=== PATIENT | male | born 1975 | race Caucasian/White ===

== ENCOUNTER 2016-11-10 11:50 | Emergency (ER) | payer OTHER, MEDICARE ==
[~2016-11-10] VITALS: Ht 172.7 cm; Wt 68.0 kg
[2016-11-10 12:35] VITALS: BP 123/78; PULSE 61; RESP 16; TEMP 98; O2SAT 99
[2016-11-10 12:40] VITALS: RESP 16; O2SAT 98
[2016-11-10 13:06] VITALS: BP 140/89; PULSE 54; RESP 16; O2SAT 100
[2016-11-10 13:12] LABS: AUTOMATED NEUTROPHIL # 4.3 TH/MM3 (1.8-7.7); BASOPHIL % 0.5 % (0.0-2.0); EOSINOPHIL # 0.1 TH/MM3 (0-0.4); EOSINOPHIL % 1.3 % (0.0-4.0); HEMATOCRIT 46.5 % (39.0-51.0); HEMO FLAGS DIFF FINAL; LYMPHOCYTE # 2.4 TH/MM3 (1.0-4.8); MEAN CELL VOLUME 88.7 FL (80.0-100.0); MEAN CORPUSCULAR HEMOGLOBIN 30.7 PG (27.0-34.0); MEAN CORPUSCULAR HGB CONC 34.6 % (32.0-36.0); MONO % 5.8 % (0.0-8.0); NEUT % 59.4 % (16.0-70.0); PLATELET COUNT 248 TH/MM3 (150-450); RED BLOOD COUNT 5.25 MIL/MM3 (4.50-5.90); RED CELL DISTRIBUTION WIDTH 12.7 % (11.6-17.2); WHITE BLOOD COUNT 7.2 TH/MM3 (4.0-11.0)
[2016-11-10 13:26] LABS: ANION GAP 7 MEQ/L (5-15); APTT (PATIENT) 26.4 SEC (24.3-30.1); BICARBONATE 19.9 MEQ/L (21.0-32.0); BLOOD UREA NITROGEN 10 MG/DL (7-18); CHLORIDE 116 MEQ/L (98-107); GLOMERULAR FILTRATION RATE 90 ML/MIN (>89); MAGNESIUM 2.3 MG/DL (1.5-2.5); POTASSIUM 3.5 MEQ/L (3.5-5.1); PROTHROMBIN TIME - PATIENT 11.2 SEC (9.8-11.6); SODIUM (NA) 143 MEQ/L (136-145)
[2016-11-10 13:32] LABS: CREATINE KINASE 86 U/L (39-308)
[2016-11-10] MEDS ORDERED: LIDOCAINE VISCOUS 2% SOLN 15 ML UDC PO ONE (13:45)
[2016-11-10] MEDS ORDERED: ALUMINUM/MAGNESIUM/SIMETH 30 ML CUP PO ONE (13:45)
--- NOTE | 2016-11-10 13:45 | PD ---
HPI Chief Complaint: Chest Pain Time Seen by Provider: 12:39 Travel History International Travel<30 days: No Contact w/Intl Traveler<30days: No Traveled to known affect area: No History of Present Illness HPI 41 yo M chest pain x 1 month intermittent w radiation L shoulder, left ear and left jaw. + Dyspnea on occasion. No pleuritic or exertional component. No fever or cough. Quite smoking 7 months ago. no family hx cardiac dz. no similar prior episodes. denies drugs/alcohol. PFSH Social History Tobacco Use: No Allergies-Medications (Allergen,Severity, Reaction): Coded Allergies: No Known Allergies (Unverified , 11/10/16) Review of Systems Except as stated in HPI: all other systems reviewed are Neg Physical Exam Narrative GENERAL: 41 yo M, WNWD, NAD SKIN: Warm and dry. HEAD: Atraumatic. Normocephalic. EYES: Pupils equal and round. No scleral icterus. No injection or drainage. ENT: No nasal bleeding or discharge. Mucous membranes pink and moist. NECK: Trachea midline. No JVD. CARDIOVASCULAR: Regular rate and rhythm. RESPIRATORY: No accessory muscle use. Clear to auscultation. Breath sounds equal bilaterally. GASTROINTESTINAL: Abdomen soft, non-tender, nondistended. Hepatic and splenic margins not palpable. MUSCULOSKELETAL: Extremities without clubbing, cyanosis, or edema. No obvious deformities. NEUROLOGICAL: Awake and alert. No obvious cranial nerve deficits. Motor grossly within normal limits. Five out of 5 muscle strength in the arms and legs. Normal speech. PSYCHIATRIC: Appropriate mood and affect; insight and judgment normal. Data Data Last Documented VS Vital Signs Date Time Temp Pulse Resp B/P (MAP) Pulse Ox O2 Delivery O2 Flow Rate FiO2 11/10/16 16:24 11/10/16 13:06 54 16 100 Nasal Cannula 2.00 11/10/16 12:35 98.0 VS reviewed Orders Orders Electrocardiogram (11/10/16 12:39) Basic Metabolic Panel (Bmp) (11/10/16 12:39) Ckmb (Isoenzyme) Profile (11/10/16 12:39) Complete Blood Count With Diff (11/10/16 12:39) Magnesium (Mg) (11/10/16 12:39) Prothrombin Time / Inr (Pt) (11/10/16 12:39) Act Partial Throm Time (Ptt) (11/10/16 12:39) Troponin I (11/10/16 12:39) Chest, Single Ap (11/10/16 12:39) Ecg Monitoring (11/10/16 12:39) Bilateral Bp Monitoring (11/10/16 12:39) Iv Access Insert/Monitor (11/10/16 12:39) Oximetry (11/10/16 12:39) Oxygen Administration (11/10/16 12:39) Al-Mag Hy-Si 40-40-4 Mg/Ml Liq (Mag-Al P (11/10/16 13:45) Lidocaine 2% Viscous (Xylocaine 2% Visco (11/10/16 13:45) Troponin I (11/10/16 13:45) Labs Laboratory Tests Test 11/10/16 12:45 11/10/16 14:40 White Blood Count 7.2 TH/MM3 Red Blood Count 5.25 MIL/MM3 Hemoglobin 16.1 GM/DL Hematocrit 46.5 % Mean Corpuscular Volume 88.7 FL Mean Corpuscular Hemoglobin 30.7 PG Mean Corpuscular Hemoglobin Concent 34.6 % Red Cell Distribution Width 12.7 % Platelet Count 248 TH/MM3 Mean Platelet Volume 7.1 FL Neutrophils (%) (Auto) 59.4 % Lymphocytes (%) (Auto) 33.0 % Monocytes (%) (Auto) 5.8 % Eosinophils (%) (Auto) 1.3 % Basophils (%) (Auto) 0.5 % Neutrophils # (Auto) 4.3 TH/MM3 Lymphocytes # (Auto) 2.4 TH/MM3 Monocytes # (Auto) 0.4 TH/MM3 Eosinophils # (Auto) 0.1 TH/MM3 Basophils # (Auto) 0.0 TH/MM3 CBC Comment DIFF FINAL Differential Comment Prothrombin Time 11.2 SEC Prothromb Time International Ratio 1.0 RATIO Activated Partial Thromboplast Time 26.4 SEC Blood Urea Nitrogen 10 MG/DL Creatinine 0.93 MG/DL Random Glucose 89 MG/DL Calcium Level 8.4 MG/DL Magnesium Level 2.3 MG/DL Sodium Level 143 MEQ/L Potassium Level 3.5 MEQ/L Chloride Level 116 MEQ/L Carbon Dioxide Level 19.9 MEQ/L Anion Gap 7 MEQ/L Estimat Glomerular Filtration Rate 90 ML/MIN Total Creatine Kinase 86 U/L Troponin I LESS THAN 0.02 NG/ML LESS THAN 0.02 NG/ML MDM Medical Decision Making Medical Screen Exam Complete: Yes Emergency Medical Condition: Yes Medical Record Reviewed: Yes Differential Diagnosis NSTEMI, unstable angina, coronary vasospasm, PE, PTX, aortic dissection, pericarditis, myocarditis, endocarditis, PNA, esophageal disease, aneurysm, musculoskeletal etiologies, anxiety, cocaine/sympathomimetic abuse Narrative Course CBC & BMP Diagram 11/10/16 12:45 Calcium Level 8.4 L, Magnesium Level 2.3 Tn < 0.02 Repeat troponin < 0.02 EKG: sinus, rate 54, normal axis/intervals The patient is resting comfortably and feels better, is alert and in no distress. The patients results and examination findings were discussed. The repeat examination is unremarkable and benign. The history, exam, diagnostic testing, and current condition do not suggest any significant pathology to warrant further testing, continued ED treatment, admission, or surgical evaluation at this point. The vital signs have been stable. The patient does not have uncontrollable pain, intractable vomiting, or other significant symptoms. The patient's condition is stable and appropriate for discharge. The patient will pursue further outpatient evaluation with a primary care physician or other designated or consulting physician as indicated in the discharge instructions. The patient expressed understanding and was agreeable with this plan. Diagnosis Primary Impression: Chest pain Qualified Codes: R07.9 - Chest pain, unspecified Referrals: [facility] call for appointment Additional Instructions: You have a choice when it comes to health care, and we are glad that you chose [facility]. Hopefully, we have met your expectations on today's visit. You are welcome to return to [facility] at any time, as we are committed to meeting the health care needs of our community. Med/Other Pt SpecificInfo: No Change to Meds Disposition: 01 DISCHARGE HOME Condition: Stable Davi Cotto MD Nov 10, 2016 13:45
--- NOTE | 2016-11-10 13:48 | RADRPT ---
EXAM DATE/TIME: 11/10/2016 13:27 [facility] COMPARISON: No previous studies available for comparison. INDICATIONS : Chest pain. Patient complains of neck pain, left arm pain, and his chest pain is worsening. MEDICAL HISTORY : None. SURGICAL HISTORY : None. ENCOUNTER: Initial ACUITY: 1 day PAIN SCORE: 3/10 LOCATION: Bilateral chest FINDINGS: A single view of the chest demonstrates the lungs to be symmetrically aerated without evidence of mas s, infiltrate or effusion. The cardiomediastinal contours are unremarkable. Osseous structures are intact. CONCLUSION: 1. No acute cardiopulmonary disease. Hunter Crandall MD on November 10, 2016 at 13:47 Board Certified Radiologist. This report was verified electronically.
--- NOTE | 2016-11-10 16:52 | EKG ---
Date Performed: 11/10/2016 Time Performed: 12:22:01 PTAGE: 41 years EKG: SINUS BRADYCARDIA BORDERLINE ECG NO PREVIOUS TRACING DOCTOR: Ramirez Witt Interpretating Date/Time 11/10/2016 16:51:16
== END 2016-11-10 16:25 | disposition home or self-care (01) ==
LOC: NEPD 11:50
DX: R07.9 Chest pain, unspecified (principal); M25.512 Pain in left shoulder; H92.02 Otalgia, left ear; R68.84 Jaw pain; R06.00 Dyspnea, unspecified; R00.1 Bradycardia, unspecified; R94.31 Abnormal electrocardiogram [ECG] [EKG]; Z87.891 Personal history of nicotine dependence
CPT/HCPCS: 71010; 80048; 82550; 83735; 84484; 85025; 85610; 85730; 93005